=== PATIENT | female | born 1980 | race Caucasian/White ===

== ENCOUNTER 2017-11-19 05:42 | Emergency (ER) | payer OTHER ==
[~2017-11-19] VITALS: Ht 165.1 cm; Wt 68.0 kg
[2017-11-19] MEDS ORDERED: MUCINEX D TABL1 EAC1 (06:00)
[2017-11-19] MEDS ORDERED: AZITHROMYCIN 2250 MG (06:00)
[2017-11-19] MEDS ORDERED: MEDROLDOSEPACK (06:01)
[2017-11-19] MEDS ORDERED: PROAIR RESPICL90 MCG (06:03)
[2017-11-19] MEDS ORDERED: PREDNISONE 20 M20 M1 PO (07:28)
[2017-11-19] MEDS ORDERED: ZPAK PO (07:28)
[2017-11-19] MEDS ORDERED: VENTOLIN HFA 1818 GM INH (07:28)
[2017-11-19 07:40] VITALS: BP 120/68
== END 2017-11-19 07:41 | disposition home or self-care (01) ==
LOC: M.ERS 05:42
DX: R06.00 Dyspnea, unspecified (principal); J45.21 Mild intermittent asthma with (acute) exacerbation